=== PATIENT | female | born 1945 | race Caucasian/White ===

== ENCOUNTER → 2022-05-03 | Outpatient (CLI) | payer MEDICARE, OTHER | LOC: M WHC 08:56 | PROVIDERS: ATTEND Family Medicine | DX: Z12.31 Encounter for screening mammogram for malignant neoplasm of breast (principal); M81.0 Age-related osteoporosis without current pathological fracture; M85.88 Other specified disorders of bone density and structure, other site ==

== ENCOUNTER → 2023-03-29 | Outpatient (CLI) | payer MEDICARE, OTHER ==
[~2023-03-29] MED LIST: LIQUID POLIBAR PLUS 105% w/v 750ML BTL As Ordered ONE
== END ==
LOC: M RAD 07:42
PROVIDERS: ATTEND Surgery
DX: K57.90 Diverticulosis of intestine, part unspecified, without perforation or abscess without bleeding (principal)

== ENCOUNTER → 2023-04-15 | Outpatient (CLI) | payer MEDICARE, OTHER ==
[~2023-04-15] MED LIST changes: +E-Z-GAS II EFFERVESCENT PACKET (SODIUM BICARB./CITRIC ACID/SIMETHICONE) As Ordered ONE; +E-Z-HD 98% w/w 340GM SUSP BTL As Ordered ONE; +E-Z-PAQUE 96% w/w SUSP 176GM BTL As Ordered ONE; -LIQUID POLIBAR PLUS 105% w/v 750ML BTL As Ordered ONE
== END ==
LOC: M RAD 07:33
PROVIDERS: ATTEND Surgery
DX: R10.13 Epigastric pain (principal)

== ENCOUNTER 2024-05-26 12:02 | Day surgery (SDC) | payer MEDICARE, OTHER ==
[~2024-05-26] VITALS: Ht 160 cm; Wt 38.9 kg
[~2024-05-26 12:02] MED LIST changes: -E-Z-GAS II EFFERVESCENT PACKET (SODIUM BICARB./CITRIC ACID/SIMETHICONE) As Ordered ONE; -E-Z-HD 98% w/w 340GM SUSP BTL As Ordered ONE; -E-Z-PAQUE 96% w/w SUSP 176GM BTL As Ordered ONE; +ERGO500029 PO; +INCR1INH; +OMEP40CA5 PO; +SYMB16INH INH
[2024-05-26] MEDS: NS 1,000 ML IV ONE (12:54)
[2024-05-26 14:16] VITALS: TEMP 97.4
[2024-05-26 14:35] VITALS: BP 159/74; O2SAT 94
== END 2024-05-26 14:39 | disposition home or self-care (01) ==
LOC: M OPP 12:02
PROVIDERS: ATTEND Internal Medicine Gastroenterology
DX: R10.13 Epigastric pain (principal); Z86.74 Personal history of sudden cardiac arrest; J43.9 Emphysema, unspecified; Z79.51 Long term (current) use of inhaled steroids; Z79.899 Other long term (current) drug therapy; Z88.1 Allergy status to other antibiotic agents; Z88.5 Allergy status to narcotic agent; Z88.8 Allergy status to other drugs, medicaments and biological substances

== ENCOUNTER → 2024-06-26 | Outpatient (CLI) | payer MEDICARE, OTHER | LOC: M RAD 08:03 | PROVIDERS: ATTEND Nurse Practitioner Family | DX: K31.84 Gastroparesis (principal) | CPT/HCPCS: 78264; A9541 ==

== ENCOUNTER → 2025-04-19 | Outpatient (CLI) | payer MEDICARE, OTHER ==
[~2025-04-19] MED LIST changes: +E-Z-GAS II EFFERVESCENT PACKET (SODIUM BICARB./CITRIC ACID/SIMETHICONE) As Ordered ONE; +E-Z-HD 98% w/w 340 GM SUSP BTL As Ordered ONE; +E-Z-PAQUE 96% w/w SUSP 176 GM BTL As Ordered ONE; +ECOT81TA5 PO
== END ==
LOC: M RAD 08:40
PROVIDERS: ATTEND Radiology Diagnostic Radiology
DX: K55.1 Chronic vascular disorders of intestine (principal)

== ENCOUNTER → 2025-04-21 | Outpatient (POV) | payer MEDICARE, OTHER ==
[~2025-04-21] VITALS: Ht 165.1 cm; Wt 36.4 kg
[~2025-04-21] MED LIST changes: -E-Z-GAS II EFFERVESCENT PACKET (SODIUM BICARB./CITRIC ACID/SIMETHICONE) As Ordered ONE; -E-Z-HD 98% w/w 340 GM SUSP BTL As Ordered ONE; -E-Z-PAQUE 96% w/w SUSP 176 GM BTL As Ordered ONE
[2025-04-21 09:45] VITALS: BP 142/82; O2SAT 94
== END ==
LOC: M IRPOV 09:25
PROVIDERS: ATTEND Radiology Diagnostic Radiology
DX: R10.9 Unspecified abdominal pain (principal); R68.81 Early satiety; J43.9 Emphysema, unspecified; I25.2 Old myocardial infarction; F41.9 Anxiety disorder, unspecified; Z88.5 Allergy status to narcotic agent; Z88.8 Allergy status to other drugs, medicaments and biological substances

== ENCOUNTER → 2025-05-12 | Outpatient (POV) | payer MEDICARE, OTHER ==
[~2025-05-12] VITALS: Ht 162.6 cm; Wt 34.1 kg
[2025-05-12 13:45] VITALS: BP 170/92; O2SAT 95
== END ==
LOC: M IRPOV 13:34
PROVIDERS: ATTEND Radiology Diagnostic Radiology
DX: J43.9 Emphysema, unspecified (principal); I25.2 Old myocardial infarction; F41.9 Anxiety disorder, unspecified; R68.81 Early satiety; Z88.5 Allergy status to narcotic agent; Z88.8 Allergy status to other drugs, medicaments and biological substances

== ENCOUNTER 2025-08-04 13:48 | Observation (INO) | payer MEDICARE, OTHER ==
[~2025-08-04] VITALS: Ht 167.6 cm; Wt 36.1 kg
[~2025-08-04 13:48] MED LIST changes: -INCR1INH; +INCR1INH INH
[2025-08-04 16:28] VITALS: BP 148/72; TEMP 98.2; O2SAT 94
[2025-08-04] MEDS ORDERED: HOME MED LIST COMPLETE! XX SCH (17:10)
[2025-08-04] MEDS ORDERED: ALBUTEROL SULFATE 2.5 MG/0.5 ML INH CONCENTRATE NEB SOLN NEB PRN (17:15)
[2025-08-04] MEDS ORDERED: ACETAMINOPHEN 325 MG TAB PO PRN (17:20)
[2025-08-04 18:08] LABS: PLATELET COUNT, AUTOMATED 201 10^3/uL (150-450)
[2025-08-04 18:29] LABS: CALCIUM LEVEL 10.0 MG/DL (8.3-10.6); CARBON DIOXIDE LEVEL 29.0 MMOL/L (20-31); CHLORIDE LEVEL 102.0 MMOL/L (98-107); CREATININE FOR GFR 0.75 MG/DL (0.55-1.30); GLOMERULAR FILTRATION RATE 80.9 (>39); POTASSIUM SERUM 4.6 MMOL/L (3.5-5.1); SODIUM LEVEL 140.0 MMOL/L (136-145)
[2025-08-04] MEDS: SYMBICORT 160/4.5MCG INHALER 6GM INH SCH (19:24)
[2025-08-04 19:28] VITALS: BP 100/55; TEMP 98.7; O2SAT 92
[2025-08-04] MEDS: LR 1,000 ML IV SCH (23:04)
[2025-08-05] VITALS (7 sets, daily range): BP systolic 130–166; BP diastolic 62–90; TEMP 98.1–99.9; O2SAT 93–96
[2025-08-05 06:47] LABS: PLATELET COUNT, AUTOMATED 161 10^3/uL (150-450)
[2025-08-05 07:11] LABS: CALCIUM LEVEL 9.9 MG/DL (8.3-10.6); CARBON DIOXIDE LEVEL 31.0 MMOL/L (20-31); CHLORIDE LEVEL 105.0 MMOL/L (98-107); CREATININE FOR GFR 0.7 MG/DL (0.55-1.30); GLOMERULAR FILTRATION RATE 87.9 (>39); INR 0.93; POTASSIUM SERUM 4.2 MMOL/L (3.5-5.1); SODIUM LEVEL 143.0 MMOL/L (136-145)
[2025-08-05] MEDS: ISOVUE-300 61% 100 ML VIAL IV SCH (11:30)
[2025-08-05] MEDS: LIDOCAINE 2% JELLY 6 ML SYRINGE TOP SCH (11:31)
[2025-08-05] MEDS: MIDAZOLAM INJ 2 MG/2 ML VIAL IV PRN (11:32)
[2025-08-05] MEDS: NS (Normal Saline) 0.9% 1,000 ML IV SCH (11:34)
[2025-08-05] MEDS: SODIUM CHLORIDE 0.9% 1000 ML XX SCH (11:34)
[2025-08-05 16:26] LABS: MAGNESIUM LEVEL 1.6 MG/DL (1.8-2.4); PHOSPHORUS LEVEL 3.3 MG/DL (2.4-5.1)
[2025-08-05] MEDS: MAG SULF 1GM/100ML (MAG RUN) 1 GM in IV 1 EA IV SCH (17:40)
[2025-08-06 04:40] VITALS: BP 126/65; TEMP 98.8; O2SAT 94
[2025-08-06 07:06] LABS: CALCIUM LEVEL 9.4 MG/DL (8.3-10.6); CARBON DIOXIDE LEVEL 29.0 MMOL/L (20-31); CHLORIDE LEVEL 106.0 MMOL/L (98-107); CREATININE FOR GFR 0.67 MG/DL (0.55-1.30); GLOMERULAR FILTRATION RATE 88.9 (>39); POTASSIUM SERUM 4.2 MMOL/L (3.5-5.1); SODIUM LEVEL 143.0 MMOL/L (136-145)
[2025-08-06 09:06] LABS: MAGNESIUM LEVEL 1.9 MG/DL (1.8-2.4)
[2025-08-06 12:00] VITALS: BP 160/90; TEMP 98.4; O2SAT 93
[2025-08-06 15:20] LABS: PHOSPHORUS LEVEL 3.2 MG/DL (2.4-5.1)
[2025-08-06 16:22] VITALS: BP 160/90; TEMP 98.4; O2SAT 93
[2025-08-06 19:37] VITALS: BP 133/62; TEMP 98.8; O2SAT 95
[2025-08-06 23:44] VITALS: BP 126/56; TEMP 98.4; O2SAT 94
[2025-08-07 03:56] VITALS: BP 132/61; TEMP 98.1; O2SAT 92
[2025-08-07 06:56] LABS: CALCIUM LEVEL 9.4 MG/DL (8.3-10.6); CARBON DIOXIDE LEVEL 30.0 MMOL/L (20-31); CHLORIDE LEVEL 105.0 MMOL/L (98-107); CREATININE FOR GFR 0.69 MG/DL (0.55-1.30); GLOMERULAR FILTRATION RATE 88.2 (>39); MAGNESIUM LEVEL 1.7 MG/DL (1.8-2.4); PHOSPHORUS LEVEL 3.3 MG/DL (2.4-5.1); POTASSIUM SERUM 4.1 MMOL/L (3.5-5.1); SODIUM LEVEL 143.0 MMOL/L (136-145)
[2025-08-07] MEDS: MAG SULF 1GM/100ML (MAG RUN) 1 GM in IV 1 EA IV SCH (09:25)
[2025-08-07 12:10] VITALS: BP 135/84; TEMP 100.4; O2SAT 96
[2025-08-07 19:37] VITALS: BP 134/63; TEMP 98.5; O2SAT 93
[2025-08-08 04:09] VITALS: BP 129/63; TEMP 98.9; O2SAT 93
[2025-08-08 06:34] LABS: CALCIUM LEVEL 8.9 MG/DL (8.3-10.6); CARBON DIOXIDE LEVEL 29 MMOL/L (20-31); CHLORIDE LEVEL 105 MMOL/L (98-107); CREATININE FOR GFR 0.61 MG/DL (0.55-1.30); GLOMERULAR FILTRATION RATE > 90.0 (>39); MAGNESIUM LEVEL 1.8 MG/DL (1.8-2.4); PHOSPHORUS LEVEL 3.5 MG/DL (2.4-5.1); POTASSIUM SERUM 4.1 MMOL/L (3.5-5.1); SODIUM LEVEL 141 MMOL/L (136-145)
[2025-08-08] MEDS: MAG SULF 1GM/100ML (MAG RUN) 1 GM in IV 1 EA IV ONE (07:50)
[2025-08-08 12:00] VITALS: BP 121/74; TEMP 98.7; O2SAT 92
[2025-08-08 22:04] VITALS: BP 137/66; TEMP 98.1; O2SAT 92
[2025-08-09 04:12] VITALS: BP 143/67; TEMP 98.1; O2SAT 93
[2025-08-09 07:11] LABS: CALCIUM LEVEL 9.4 MG/DL (8.3-10.6); CARBON DIOXIDE LEVEL 31 MMOL/L (20-31); CHLORIDE LEVEL 104 MMOL/L (98-107); CREATININE FOR GFR 0.63 MG/DL (0.55-1.30); GLOMERULAR FILTRATION RATE > 90.0 (>39); MAGNESIUM LEVEL 1.8 MG/DL (1.8-2.4); PHOSPHORUS LEVEL 3.5 MG/DL (2.4-5.1); POTASSIUM SERUM 4.4 MMOL/L (3.5-5.1); SODIUM LEVEL 142 MMOL/L (136-145)
[2025-08-09] MEDS: MAG SULF 1GM/100ML (MAG RUN) 1 GM in IV 1 EA IV ONE (08:43)
[2025-08-09 11:57] VITALS: BP 148/67; TEMP 98.3; O2SAT 94
[2025-08-09 20:00] VITALS: BP 120/57; TEMP 99.8; O2SAT 95
[2025-08-09] MEDS ORDERED: ALPRAZolam 0.25 MG TAB PO PRN (20:00)
[2025-08-10 04:00] VITALS: BP 135/65; TEMP 98.5; O2SAT 92
[2025-08-10 06:22] LABS: PLATELET COUNT, AUTOMATED 171 10^3/uL (150-450)
[2025-08-10] MEDS: READI-CAT 2 NG STA (06:40)
[2025-08-10 06:50] LABS: CALCIUM LEVEL 9.5 MG/DL (8.3-10.6); CARBON DIOXIDE LEVEL 30 MMOL/L (20-31); CHLORIDE LEVEL 103 MMOL/L (98-107); CREATININE FOR GFR 0.58 MG/DL (0.55-1.30); GLOMERULAR FILTRATION RATE > 90.0 (>39); PHOSPHORUS LEVEL 3.9 MG/DL (2.4-5.1); POTASSIUM SERUM 4.4 MMOL/L (3.5-5.1); SODIUM LEVEL 141 MMOL/L (136-145)
[2025-08-10 08:05] LABS: CHOLESTEROL LEVEL 141 MG/DL (<200); CHOLESTEROL RISK RATIO 2.34 (<5); LDL CHOLESTEROL 68.8 MG/DL (<100); MAGNESIUM LEVEL 1.7 MG/DL (1.8-2.4); NON-HDL-C 80.8 MG/DL; TRIGLYCERIDES LEVEL 60 MG/DL (<150)
[2025-08-10] MEDS: HEPARIN SOD 5000 UNITS/ML 1 ML VIAL/SYRINGE SQ SCH (11:16)
[2025-08-10 11:50] VITALS: BP 134/63; TEMP 96.2; O2SAT 93
[2025-08-10 20:00] VITALS: BP 131/61; TEMP 97.8; O2SAT 93
[2025-08-10] MEDS: MAG SULF 1GM/100ML (MAG RUN) 1 GM in IV 1 EA IV ONE (20:07)
[2025-08-11 04:00] VITALS: BP 130/64; TEMP 98.6; O2SAT 92
[2025-08-11 12:00] VITALS: BP 129/63; TEMP 99.2; O2SAT 94
[2025-08-11 19:27] VITALS: BP 118/70; TEMP 96.1; O2SAT 92
[2025-08-12 04:22] VITALS: BP 129/58; TEMP 98.6; O2SAT 95
[2025-08-12 08:49] LABS: CALCIUM LEVEL 10.0 MG/DL (8.3-10.6); CARBON DIOXIDE LEVEL 30 MMOL/L (20-31); CHLORIDE LEVEL 104 MMOL/L (98-107); CREATININE FOR GFR 0.61 MG/DL (0.55-1.30); GLOMERULAR FILTRATION RATE > 90.0 (>39); PHOSPHORUS LEVEL 3.3 MG/DL (2.4-5.1); POTASSIUM SERUM 4.2 MMOL/L (3.5-5.1); SODIUM LEVEL 143 MMOL/L (136-145)
[2025-08-12 12:00] VITALS: BP 141/63; TEMP 97.9; O2SAT 95
[2025-08-20] MEDS ORDERED: ONDA-282 PO (15:35)
== END 2025-08-12 17:54 | disposition home health service (06) ==
LOC: M MSPAV 16:15
PROVIDERS: ADMIT Student in an Organized Health Care Education/Training Program; ATTEND General Practice
DX: R62.7 Adult failure to thrive (principal); E43 Unspecified severe protein-calorie malnutrition; K55.1 Chronic vascular disorders of intestine; E87.8 Other disorders of electrolyte and fluid balance, not elsewhere classified; E83.42 Hypomagnesemia; J44.9 Chronic obstructive pulmonary disease, unspecified; I25.10 Atherosclerotic heart disease of native coronary artery without angina pectoris; K31.84 Gastroparesis; Z79.899 Other long term (current) drug therapy; Z88.5 Allergy status to narcotic agent; Z88.8 Allergy status to other drugs, medicaments and biological substances
CPT/HCPCS: 36415; 43752; 80048; 80061; 83735; 84100; 84134; 85027; 85610; 93005; 94640; 96360; 96361; 99152; 99153; C1729; C1769; G0378; J2250; J3010; J3475; Q9967

== ENCOUNTER → 2025-08-16 | Outpatient (CLI) | payer MEDICARE, OTHER ==
[~2025-08-16] VITALS: Ht 162.6 cm; Wt 35.8 kg
== END ==
LOC: M IRPRO 10:47
PROVIDERS: ATTEND Radiology Diagnostic Radiology
DX: R62.7 Adult failure to thrive (principal); Z53.9 Procedure and treatment not carried out, unspecified reason

== ENCOUNTER → 2025-08-16 | Outpatient (CLI) | payer MEDICARE, OTHER ==
[~2025-08-16] VITALS: Ht 162.6 cm; Wt 35.8 kg
[~2025-08-16] MED LIST changes: +ACETAMINOPHEN 1000MG/100ML IV BAG As Ordered ONE; +GLUCAGON INJ 1 MG VIAL IV SCH; +ISOVUE-300 61% 100 ML VIAL IV SCH; +LIDOCAINE 1% MDV 20 ML VIAL SC SCH; +LIDOCAINE 2% 100 MG/5 ML SDV (FOR ANES.) As Ordered ONE; +LIDOCAINE 2% JELLY 6 ML SYRINGE TOP SCH; +MORPHINE 2 MG/ML 1 ML VIAL IV PRN; +ONDANSETRON 4MG/2ML VIAL As Ordered ONE; +SODIUM CHLORIDE 0.9% 1000 ML XX SCH; +ceFAZolin SODIUM 2 GM in DEXTROSE 5% (D5W) ADV/MINI-BAG 50 ML IV ONE; +dexAMETHasone 4 MG/ML 1 ML VIAL As Ordered ONE
[2025-08-16 10:50] VITALS: TEMP 98.6
[2025-08-16] MEDS: LIDOCAINE 1% MDV 20 ML VIAL SC SCH (15:17)
[2025-08-16] MEDS: GLUCAGON INJ 1 MG VIAL IV SCH (15:17)
[2025-08-16] MEDS: ISOVUE-300 61% 100 ML VIAL IV SCH (15:18)
[2025-08-16] MEDS: KETOROLAC 30 MG/ML 1 ML VIAL IV ONE (16:17)
[2025-08-16] MEDS: ACETAMINOPHEN *IV* 1,000 MG in IV 1 EA IV ONE (17:03)
[2025-08-16] MEDS: ONDANSETRON 4MG ORAL DISINTEGRATING TAB PO ONE (17:53)
[2025-08-16 18:05] VITALS: BP 131/61; O2SAT 90
== END ==
LOC: M IRPRO 15:01
PROVIDERS: ATTEND General Practice
DX: R62.7 Adult failure to thrive (principal)
CPT/HCPCS: 49441; J0131; J1100; J1610; J1885; J2405; J3010; Q9967

== ENCOUNTER → 2025-08-20 | Outpatient (REF) | payer MEDICARE, OTHER ==
[~2025-08-20] MED LIST changes: -ACETAMINOPHEN 1000MG/100ML IV BAG As Ordered ONE; -GLUCAGON INJ 1 MG VIAL IV SCH; -ISOVUE-300 61% 100 ML VIAL IV SCH; -LIDOCAINE 1% MDV 20 ML VIAL SC SCH; -LIDOCAINE 2% 100 MG/5 ML SDV (FOR ANES.) As Ordered ONE; -LIDOCAINE 2% JELLY 6 ML SYRINGE TOP SCH; -MORPHINE 2 MG/ML 1 ML VIAL IV PRN; +ONDA-282 PO; -ONDANSETRON 4MG/2ML VIAL As Ordered ONE; -SODIUM CHLORIDE 0.9% 1000 ML XX SCH; -ceFAZolin SODIUM 2 GM in DEXTROSE 5% (D5W) ADV/MINI-BAG 50 ML IV ONE; -dexAMETHasone 4 MG/ML 1 ML VIAL As Ordered ONE
[2025-08-20 17:49] LABS: PLATELET COUNT, AUTOMATED 227 10^3/uL (150-450)
[2025-08-20 18:08] LABS: CALCIUM LEVEL 10.2 MG/DL (8.3-10.6); CARBON DIOXIDE LEVEL 34 MMOL/L (20-31); CHLORIDE LEVEL 95 MMOL/L (98-107); CREATININE FOR GFR 0.49 MG/DL (0.55-1.30); GLOMERULAR FILTRATION RATE > 90.0 (>39); MAGNESIUM LEVEL 1.6 MG/DL (1.8-2.4); PHOSPHORUS LEVEL 2.5 MG/DL (2.4-5.1); POTASSIUM SERUM 3.5 MMOL/L (3.5-5.1); SODIUM LEVEL 137 MMOL/L (136-145)
== END ==
LOC: M LAB REF 17:09
PROVIDERS: ATTEND General Practice
DX: R62.7 Adult failure to thrive (principal); Z88.5 Allergy status to narcotic agent; Z88.8 Allergy status to other drugs, medicaments and biological substances

== ENCOUNTER 2025-08-23 11:33 | Inpatient (IN) | payer MEDICARE, OTHER ==
[~2025-08-23] VITALS: Ht 162.6 cm; Wt 36.5 kg
[2025-08-23] VITALS (7 sets, daily range): BP systolic 118–153; BP diastolic 58–77; TEMP 97.9–100.2; O2SAT 85–98
[2025-08-23 12:20] LABS: BASO # 0.0 10^3/uL (0.0-0.2); BASO % 0.3 % (0.0-1.0); EOS # 0.1 10^3/uL (0.0-0.5); EOS % 0.4 % (0.0-3.0); LYMPH # 0.6 10^3/uL (1.5-5.0); LYMPH % 5.1 % (24.0-44.0); MONO # 1.1 10^3/uL (0.0-0.8); MONO % 8.6 % (2.0-8.0); NEUTROPHILS # 10.8 10^3/uL (1.5-8.5); NEUTROPHILS % 85.3 % (36.0-66.0); PLATELET COUNT, AUTOMATED 279 10^3/uL (150-450)
[2025-08-23] MEDS ORDERED: ISOVUE-370 76% 100 ML VIAL As Ordered ONE (12:32)
[2025-08-23 12:46] LABS: ALT/SGPT 16 U/L (7.0-40); AST/SGOT 24 U/L (<34); CALCIUM LEVEL 10.1 MG/DL (8.3-10.6); CARBON DIOXIDE LEVEL 33 MMOL/L (20-31); CHLORIDE LEVEL 93 MMOL/L (98-107); CREATININE FOR GFR 0.57 MG/DL (0.55-1.30); GLOMERULAR FILTRATION RATE > 90.0 (>39); POTASSIUM SERUM 4.4 MMOL/L (3.5-5.1); SODIUM LEVEL 136 MMOL/L (136-145)
[2025-08-23] MEDS ORDERED: HOME MED LIST COMPLETE! XX SCH (13:25)
[2025-08-23] MEDS ORDERED: IPRATROPIUM 0.5 MG/ALBUTEROL 2.5 MG INH SOL UD 3 ML NEB PRN (16:00)
[2025-08-23 17:54] LABS: C REACTIVE PROTEIN QUANTITATIV 6.06 MG/DL (<1.0)
[2025-08-23 17:56] LABS: TOTAL 25(OH) VITAMIN D 58.0 NG/ML (20.0-100.0)
[2025-08-23 17:57] LABS: VITAMIN B12 LEVEL 829.0 PG/ML (211-911)
[2025-08-23] MEDS: SYMBICORT 160/4.5MCG INHALER 6GM INH SCH (19:22)
[2025-08-23] MEDS: IPRATROPIUM 0.5 MG/ALBUTEROL 2.5 MG INH SOL UD 3 ML NEB SCH (19:22)
[2025-08-23] MEDS: ONDANSETRON 4MG/2ML VIAL IV PRN (23:58)
[2025-08-24] MEDS: ACETAMINOPHEN *IV* 500 MG in IV 1 EA IV ONE (00:50)
[2025-08-24 02:21] VITALS: TEMP 99.3; O2SAT 97
[2025-08-24 03:57] VITALS: BP 112/58; TEMP 99.2; O2SAT 99
[2025-08-24 06:35] LABS: PLATELET COUNT, AUTOMATED 255 10^3/uL (150-450)
[2025-08-24 07:00] LABS: CALCIUM LEVEL 9.8 MG/DL (8.3-10.6); CARBON DIOXIDE LEVEL 34.0 MMOL/L (20-31); CHLORIDE LEVEL 92.0 MMOL/L (98-107); CREATININE FOR GFR 0.66 MG/DL (0.55-1.30); GLOMERULAR FILTRATION RATE 89.2 (>39); MAGNESIUM LEVEL 1.8 MG/DL (1.8-2.4); POTASSIUM SERUM 4.5 MMOL/L (3.5-5.1); SODIUM LEVEL 133.0 MMOL/L (136-145)
[2025-08-24 08:31] VITALS: BP 100/54; TEMP 98.4; O2SAT 97
[2025-08-24] MEDS: ENOXAPARIN 30 MG/0.3 ML SYRINGE (J1650 PER 10MG) SC SCH (09:46)
[2025-08-24 12:00] VITALS: BP 97/52; TEMP 98.4; O2SAT 95
[2025-08-24 17:15] VITALS: BP 112/70; TEMP 100.4; O2SAT 96
[2025-08-24] MEDS: ACETAMINOPHEN 500 MG TAB PO PRN (17:38)
[2025-08-24 20:00] VITALS: BP 123/73; TEMP 99.7; O2SAT 96
[2025-08-25] VITALS (14 sets, daily range): BP systolic 91–119; BP diastolic 50–65; TEMP 98.6–100.4; O2SAT 86–98
[2025-08-25 06:26] LABS: PLATELET COUNT, AUTOMATED 322 10^3/uL (150-450)
[2025-08-25 06:58] LABS: CALCIUM LEVEL 9.6 MG/DL (8.3-10.6); CARBON DIOXIDE LEVEL 33 MMOL/L (20-31); CHLORIDE LEVEL 96 MMOL/L (98-107); CREATININE FOR GFR 0.56 MG/DL (0.55-1.30); GLOMERULAR FILTRATION RATE > 90.0 (>39); MAGNESIUM LEVEL 1.9 MG/DL (1.8-2.4); POTASSIUM SERUM 4.6 MMOL/L (3.5-5.1); SODIUM LEVEL 136 MMOL/L (136-145)
[2025-08-26] VITALS (11 sets, daily range): BP systolic 96–138; BP diastolic 49–61; TEMP 97–101.9; O2SAT 91–97
[2025-08-26 06:41] LABS: PLATELET COUNT, AUTOMATED 324 10^3/uL (150-450)
[2025-08-26 07:16] LABS: CALCIUM LEVEL 9.6 MG/DL (8.3-10.6); CARBON DIOXIDE LEVEL 35 MMOL/L (20-31); CHLORIDE LEVEL 94 MMOL/L (98-107); CREATININE FOR GFR 0.58 MG/DL (0.55-1.30); GLOMERULAR FILTRATION RATE > 90.0 (>39); MAGNESIUM LEVEL 1.8 MG/DL (1.8-2.4); POTASSIUM SERUM 4.5 MMOL/L (3.5-5.1); SODIUM LEVEL 137 MMOL/L (136-145)
[2025-08-26] MEDS ORDERED: INCRUSE ELLIPTA INHALER (PATIENT'S OWN MED) INH SCH (08:00)
[2025-08-26] MEDS ORDERED: FLEET ENEMA PR PRN (10:25)
[2025-08-26] MEDS ORDERED: RAMELTEON 8 MG TAB PO PRN (10:30)
[2025-08-27 03:19] VITALS: BP 119/60; TEMP 97.3; O2SAT 95
[2025-08-27 06:48] LABS: PLATELET COUNT, AUTOMATED 315 10^3/uL (150-450)
[2025-08-27 07:20] LABS: CALCIUM LEVEL 9.7 MG/DL (8.3-10.6); CARBON DIOXIDE LEVEL 32 MMOL/L (20-31); CHLORIDE LEVEL 96 MMOL/L (98-107); CREATININE FOR GFR 0.57 MG/DL (0.55-1.30); GLOMERULAR FILTRATION RATE > 90.0 (>39); MAGNESIUM LEVEL 1.9 MG/DL (1.8-2.4); POTASSIUM SERUM 4.9 MMOL/L (3.5-5.1); SODIUM LEVEL 135 MMOL/L (136-145)
[2025-08-27 07:33] VITALS: BP 99/55; TEMP 96.1; O2SAT 55; O2SAT 95
[2025-08-27] MEDS: INCRUSE ELLIPTA INHALER (PATIENT'S OWN MED) INH SCH (08:00)
[2025-08-27] MEDS: BISACODYL 10 MG SUPP PR PRN (10:07)
[2025-08-27 11:25] VITALS: BP 100/54; TEMP 96.3; O2SAT 95
[2025-08-27 15:52] VITALS: BP 109/63; TEMP 99.5; O2SAT 89
[2025-08-27 18:51] LABS: KETONE, URINE AUTO RFX NEGATIVE (NEGATIVE); LEUKOCYTE ESTERASE UR AUTO RFX NEGATIVE (NEGATIVE); NITRITE, URINE AUTO RFX NEGATIVE (NEGATIVE); RBC, URINE AUTO RFX 1 /HPF (0-3); SQUAM EPITHELIAL CELL UR AURFX 1 /HPF (0-6); TRANSITIONAL EPITHELIAL AU RFX 1 /HPF; WBC, URINE AUTO RFX 2 /HPF (0-3)
[2025-08-27 20:17] VITALS: BP 109/50; TEMP 99; O2SAT 90
[2025-08-28] VITALS (7 sets, daily range): BP systolic 97–132; BP diastolic 48–64; TEMP 97.3–98.8; O2SAT 92–98
[2025-08-28 06:23] LABS: PLATELET COUNT, AUTOMATED 365 10^3/uL (150-450)
[2025-08-28 06:49] LABS: CALCIUM LEVEL 9.6 MG/DL (8.3-10.6); CARBON DIOXIDE LEVEL 33 MMOL/L (20-31); CHLORIDE LEVEL 97 MMOL/L (98-107); CREATININE FOR GFR 0.53 MG/DL (0.55-1.30); GLOMERULAR FILTRATION RATE > 90.0 (>39); MAGNESIUM LEVEL 1.9 MG/DL (1.8-2.4); POTASSIUM SERUM 4.7 MMOL/L (3.5-5.1); SODIUM LEVEL 139 MMOL/L (136-145)
[2025-08-28 07:13] LABS: HIV 1&2 SCREEN NEGATIVE (NEGATIVE)
[2025-08-28] MEDS ORDERED: TIOTROPIUM BROM 2.5MCG/ACTUATION 4GM INH INH SCH (08:00)
[2025-08-29 03:54] VITALS: BP 106/54; TEMP 98.3; O2SAT 95
[2025-08-29 06:50] LABS: PLATELET COUNT, AUTOMATED 342 10^3/uL (150-450)
[2025-08-29 07:20] LABS: CALCIUM LEVEL 10.2 MG/DL (8.3-10.6); CARBON DIOXIDE LEVEL 33 MMOL/L (20-31); CHLORIDE LEVEL 98 MMOL/L (98-107); CREATININE FOR GFR 0.59 MG/DL (0.55-1.30); GLOMERULAR FILTRATION RATE > 90.0 (>39); MAGNESIUM LEVEL 2.0 MG/DL (1.8-2.4); POTASSIUM SERUM 4.4 MMOL/L (3.5-5.1); SODIUM LEVEL 139 MMOL/L (136-145)
[2025-08-29 08:00] VITALS: BP 103/58; TEMP 98.6; O2SAT 94
[2025-08-29 12:00] VITALS: BP 116/56; TEMP 99.1; O2SAT 95
[2025-08-29] MEDS: D5W/0.9% SODIUM CHLORIDE 1,000 ML IV SCH (12:55)
[2025-08-29] MEDS: BISACODYL 10 MG SUPP PR SCH (14:35)
[2025-08-29 16:00] VITALS: BP 107/53; TEMP 98.6; O2SAT 95
[2025-08-29 20:26] VITALS: BP 125/59; TEMP 98; O2SAT 93
[2025-08-29 23:52] VITALS: BP 107/52; TEMP 98.4; O2SAT 93
[2025-08-30 03:22] VITALS: BP 102/53; TEMP 98.8; O2SAT 96
[2025-08-30 07:53] LABS: PLATELET COUNT, AUTOMATED 350 10^3/uL (150-450)
[2025-08-30 08:23] LABS: CALCIUM LEVEL 9.3 MG/DL (8.3-10.6); CARBON DIOXIDE LEVEL 31 MMOL/L (20-31); CHLORIDE LEVEL 104 MMOL/L (98-107); CREATININE FOR GFR 0.59 MG/DL (0.55-1.30); GLOMERULAR FILTRATION RATE > 90.0 (>39); MAGNESIUM LEVEL 1.7 MG/DL (1.8-2.4); POTASSIUM SERUM 4.6 MMOL/L (3.5-5.1); SODIUM LEVEL 143 MMOL/L (136-145)
[2025-08-30 08:25] VITALS: BP 100/51; TEMP 98.3; O2SAT 95
[2025-08-30] MEDS: LIDOCAINE 2% JELLY 6 ML SYRINGE TOP SCH (10:50)
[2025-08-30] MEDS: NS (Normal Saline) 0.9% 1,000 ML IV SCH (10:50)
[2025-08-30] MEDS: GLUCAGON INJ 1 MG VIAL IV SCH (10:50)
[2025-08-30] MEDS: ceFAZolin SODIUM 2 GM in DEXTROSE 5% (D5W) ADV/MINI-BAG 50 ML IV ONE (10:50)
[2025-08-30] MEDS: SODIUM CHLORIDE 0.9% 1000 ML XX SCH (12:00)
[2025-08-30] MEDS: LIDOCAINE 1% MDV 20 ML VIAL SC SCH (12:00)
[2025-08-30] MEDS: MIDAZOLAM INJ 2 MG/2 ML VIAL IV PRN (12:06)
[2025-08-30] MEDS: ISOVUE-300 61% 100 ML VIAL IV SCH (12:18)
[2025-08-30 12:45] VITALS: BP 113/63; TEMP 98.4; O2SAT 94
[2025-08-30 16:44] VITALS: BP 103/51; TEMP 99.2; O2SAT 95
[2025-08-30 20:46] VITALS: BP 103/47; TEMP 98.3; O2SAT 93
[2025-08-31 00:23] VITALS: BP 102/54; TEMP 98.3; O2SAT 94
[2025-08-31 03:56] VITALS: BP 117/53; TEMP 98.6; O2SAT 94
[2025-08-31] MEDS: BISACODYL 10 MG SUPP PR PRN (07:54)
[2025-08-31 08:00] VITALS: BP 133/52; TEMP 98.9; O2SAT 95
[2025-08-31 09:00] LABS: PLATELET COUNT, AUTOMATED 346 10^3/uL (150-450)
[2025-08-31 09:28] LABS: CALCIUM LEVEL 9.0 MG/DL (8.3-10.6); CARBON DIOXIDE LEVEL 28 MMOL/L (20-31); CHLORIDE LEVEL 105 MMOL/L (98-107); CREATININE FOR GFR 0.52 MG/DL (0.55-1.30); GLOMERULAR FILTRATION RATE > 90.0 (>39); MAGNESIUM LEVEL 1.6 MG/DL (1.8-2.4); PHOSPHORUS LEVEL 3.0 MG/DL (2.4-5.1); POTASSIUM SERUM 4.9 MMOL/L (3.5-5.1); SODIUM LEVEL 142 MMOL/L (136-145)
[2025-08-31 11:32] LABS: BORRELIA SPECIES DNA NOT DETECTED
[2025-08-31] MEDS: MAG SULF 1GM/100ML (MAG RUN) 1 GM in IV 1 EA IV SCH (11:34)
[2025-08-31 11:50] VITALS: BP 120/55; TEMP 99.6; O2SAT 94
[2025-08-31 12:10] VITALS: TEMP 97.7
[2025-08-31 20:05] VITALS: BP 115/52; TEMP 98.7; O2SAT 90
[2025-08-31] MEDS: ONDANSETRON 4MG/2ML VIAL IV PRN (21:33)
[2025-09-01] VITALS (7 sets, daily range): BP systolic 105–145; BP diastolic 55–68; TEMP 98.1–99.3; O2SAT 90–98
[2025-09-01 07:10] LABS: BASO # 0.1 10^3/uL (0.0-0.2); BASO % 0.5 % (0.0-1.0); EOS # 0.1 10^3/uL (0.0-0.5); EOS % 0.6 % (0.0-3.0); LYMPH # 0.8 10^3/uL (1.5-5.0); LYMPH % 7.5 % (24.0-44.0); MONO # 0.5 10^3/uL (0.0-0.8); MONO % 5.1 % (2.0-8.0); NEUTROPHILS # 9.1 10^3/uL (1.5-8.5); NEUTROPHILS % 85.9 % (36.0-66.0); PLATELET COUNT, AUTOMATED 362 10^3/uL (150-450)
[2025-09-01 07:39] LABS: ALT/SGPT 36 U/L (7.0-40); AST/SGOT 34 U/L (<34); CALCIUM LEVEL 9.9 MG/DL (8.3-10.6); CARBON DIOXIDE LEVEL 30 MMOL/L (20-31); CHLORIDE LEVEL 100 MMOL/L (98-107); CREATININE FOR GFR 0.59 MG/DL (0.55-1.30); GLOMERULAR FILTRATION RATE > 90.0 (>39); MAGNESIUM LEVEL 1.9 MG/DL (1.8-2.4); PHOSPHORUS LEVEL 3.2 MG/DL (2.4-5.1); POTASSIUM SERUM 5.0 MMOL/L (3.5-5.1); SODIUM LEVEL 139 MMOL/L (136-145)
[2025-09-01] MEDS ORDERED: GI COCKTAIL 50 ML BTL(HYOSCYAMINE/MAALOX/LIDOCAINE VISCOUS)(1:3:1) PO ONE (13:15)
[2025-09-02 05:05] VITALS: BP 115/56; TEMP 97.6; O2SAT 90
[2025-09-02 08:00] VITALS: BP 105/51; TEMP 98.6; O2SAT 98
[2025-09-02 11:54] VITALS: BP 128/56; TEMP 98.1; O2SAT 97
[2025-09-02] MEDS ORDERED: SODIUM CHLORIDE 0.9% INJ 10 ML SYR IV PRN (16:40)
[2025-09-02 17:14] VITALS: BP 118/75; TEMP 97.6; O2SAT 92
[2025-09-02 20:00] VITALS: BP 130/60; TEMP 98.4; O2SAT 98
[2025-09-02 23:51] VITALS: BP 131/61; TEMP 98.3; O2SAT 91
[2025-09-03] VITALS (7 sets, daily range): BP systolic 109–159; BP diastolic 52–75; TEMP 97.9–99.7; O2SAT 88–94
[2025-09-03] MEDS: SODIUM CHLORIDE 0.9% INJ 10 ML SYR IV SCH (09:16)
[2025-09-03] MEDS ORDERED: LIDOCAINE 2% 100 MG/5 ML SDV (FOR ANES.) As Ordered ONE (14:23)
[2025-09-03] MEDS ORDERED: MIDAZOLAM INJ 2 MG/2 ML VIAL As Ordered ONE (14:24)
[2025-09-03] MEDS ORDERED: PHENYLephrine 500MCG 5ML (100MCG/ML) SYRINGE As Ordered ONE (15:18)
[2025-09-03] MEDS ORDERED: CALCIUM CHLORIDE 10% 1 GM/10 ML SYR As Ordered ONE (15:49)
[2025-09-03] MEDS: HEPARIN 1,000 UNITS/ML 10 ML VIAL (FOR RADIOLOGY & DIALYSIS ONLY) IV STA (15:55)
[2025-09-03] MEDS: LIDOCAINE/PRILOCAINE CREAM 5 GM TUBE TOP ONE (15:56)
[2025-09-03] MEDS: NITROGLYCERIN 2% OINT 1 GM *U/D* PKT TOP ONE (15:56)
[2025-09-03] MEDS: HEPARIN 1,000 UNITS/ML 10 ML VIAL (FOR RADIOLOGY & DIALYSIS ONLY) XX SCH (16:08)
[2025-09-03] MEDS: NITROGLYCERIN IN D5W 25 MG/250 ML (100 MCG/ML) XX SCH (16:24)
[2025-09-03] MEDS ORDERED: PROTAMINE SULF 50MG 5ML VIAL As Ordered ONE (16:41)
[2025-09-03] MEDS: LIDOCAINE 1% MDV 20 ML VIAL SC STA (16:49)
[2025-09-03] MEDS: ISOVUE-300 61% 100 ML VIAL IV STA (16:50)
[2025-09-03] MEDS: NS (Normal Saline) 0.9% 1,000 ML IV SCH (18:20)
[2025-09-03 18:22] LABS: PLATELET COUNT, AUTOMATED 342 10^3/uL (150-450)
[2025-09-03 18:54] LABS: CALCIUM LEVEL 10.4 MG/DL (8.3-10.6); CARBON DIOXIDE LEVEL 31 MMOL/L (20-31); CHLORIDE LEVEL 101 MMOL/L (98-107); CREATININE FOR GFR 0.50 MG/DL (0.55-1.30); GLOMERULAR FILTRATION RATE > 90.0 (>39); POTASSIUM SERUM 4.3 MMOL/L (3.5-5.1); SODIUM LEVEL 140 MMOL/L (136-145)
[2025-09-04 00:09] VITALS: BP 135/65; TEMP 97.9; O2SAT 89
[2025-09-04] MEDS: LIDOCAINE 5% PATCH TD ONE (02:55)
[2025-09-04 04:00] VITALS: BP 112/58; TEMP 98.2; O2SAT 93
[2025-09-04 08:00] VITALS: BP 130/83; TEMP 98.7; O2SAT 91
[2025-09-04] MEDS ORDERED: GI COCKTAIL 50 ML BTL(HYOSCYAMINE/MAALOX/LIDOCAINE VISCOUS)(1:3:1) PO ONE (10:35)
[2025-09-04] MEDS: traMADol 50 MG TAB PO PRN (10:47)
[2025-09-04 12:00] VITALS: BP 136/58; TEMP 99.3; O2SAT 90
[2025-09-04 13:49] LABS: MAGNESIUM LEVEL 1.3 MG/DL (1.8-2.4); PHOSPHORUS LEVEL 2.2 MG/DL (2.4-5.1)
[2025-09-04] MEDS: ATORVASTATIN 20 MG TAB PO SCH (14:43)
[2025-09-04] MEDS: ASPIRIN 81 MG ENTERIC TABLET PO SCH (14:43)
[2025-09-04 16:00] VITALS: BP 119/56; TEMP 98.8; O2SAT 86
[2025-09-04] MEDS ORDERED: GI COCKTAIL 50 ML BTL(HYOSCYAMINE/MAALOX/LIDOCAINE VISCOUS)(1:3:1) PO PRN (16:45)
[2025-09-05] VITALS (15 sets, daily range): BP systolic 103–161; BP diastolic 56–79; TEMP 97.7–99.4; O2SAT 87–98
[2025-09-05] MEDS: METOCLOPRAMIDE 10 MG TAB PO SCH (08:01)
[2025-09-05 08:24] LABS: BASO # 0.0 10^3/uL (0.0-0.2); BASO % 0.3 % (0.0-1.0); EOS # 0.0 10^3/uL (0.0-0.5); EOS % 0.1 % (0.0-3.0); LYMPH # 0.6 10^3/uL (1.5-5.0); LYMPH % 6.0 % (24.0-44.0); MONO # 0.7 10^3/uL (0.0-0.8); MONO % 6.8 % (2.0-8.0); NEUTROPHILS # 8.3 10^3/uL (1.5-8.5); NEUTROPHILS % 86.4 % (36.0-66.0); PLATELET COUNT, AUTOMATED 265 10^3/uL (150-450)
[2025-09-05 08:43] LABS: CALCIUM LEVEL 9.2 MG/DL (8.3-10.6); CARBON DIOXIDE LEVEL 32 MMOL/L (20-31); CHLORIDE LEVEL 102 MMOL/L (98-107); CREATININE FOR GFR 0.48 MG/DL (0.55-1.30); GLOMERULAR FILTRATION RATE > 90.0 (>39); MAGNESIUM LEVEL 1.8 MG/DL (1.8-2.4); PHOSPHORUS LEVEL 1.9 MG/DL (2.4-5.1); POTASSIUM SERUM 3.2 MMOL/L (3.5-5.1); SODIUM LEVEL 139 MMOL/L (136-145)
[2025-09-05 10:05] LABS: IRON (FE) 27 UG/DL (50-170); PERCENT SATURATION 11.6 % (13.2-45.0)
[2025-09-05 10:15] LABS: VITAMIN B12 LEVEL 916 PG/ML (211-911)
[2025-09-05] MEDS: FERRIC CARBOXYMALTOSE INJ 750 MG, VIAL MATE ADAPTER 1 EACH in NS 100 ML IV ONE (18:13)
[2025-09-05 20:42] LABS: BASO # 0.0 10^3/uL (0.0-0.2); BASO % 0.3 % (0.0-1.0); EOS # 0.0 10^3/uL (0.0-0.5); EOS % 0.2 % (0.0-3.0); LYMPH # 0.6 10^3/uL (1.5-5.0); LYMPH % 6.8 % (24.0-44.0); MONO # 0.7 10^3/uL (0.0-0.8); MONO % 7.2 % (2.0-8.0); NEUTROPHILS # 7.8 10^3/uL (1.5-8.5); NEUTROPHILS % 84.8 % (36.0-66.0); PLATELET COUNT, AUTOMATED 232 10^3/uL (150-450)
[2025-09-06 03:51] VITALS: BP 117/64; TEMP 97.7; O2SAT 89
[2025-09-06 07:04] LABS: PLATELET COUNT, AUTOMATED 240 10^3/uL (150-450)
[2025-09-06 07:30] LABS: ALT/SGPT 16 U/L (7.0-40); AST/SGOT 26 U/L (<34); CALCIUM LEVEL 9.0 MG/DL (8.3-10.6); CARBON DIOXIDE LEVEL 31 MMOL/L (20-31); CHLORIDE LEVEL 102 MMOL/L (98-107); CREATININE FOR GFR 0.45 MG/DL (0.55-1.30); GLOMERULAR FILTRATION RATE > 90.0 (>39); MAGNESIUM LEVEL 1.7 MG/DL (1.8-2.4); PHOSPHORUS LEVEL 2.7 MG/DL (2.4-5.1); POTASSIUM SERUM 3.7 MMOL/L (3.5-5.1); SODIUM LEVEL 139 MMOL/L (136-145)
[2025-09-06 08:11] VITALS: BP 139/69; TEMP 97.4; O2SAT 87
[2025-09-06] MEDS: MAG SULF 1GM/100ML (MAG RUN) 1 GM in IV 1 EA IV SCH (08:57)
[2025-09-06 12:02] VITALS: BP 130/66; TEMP 97.5; O2SAT 89
[2025-09-06 15:54] VITALS: BP 128/69; TEMP 98; O2SAT 89
[2025-09-06 21:42] VITALS: BP 183/74; TEMP 97.6; O2SAT 89
[2025-09-07] VITALS (8 sets, daily range): BP systolic 108–137; BP diastolic 58–73; TEMP 97.8–99; O2SAT 84–93
[2025-09-07 09:45] LABS: PLATELET COUNT, AUTOMATED 236 10^3/uL (150-450)
[2025-09-07] MEDS: METOPROLOL TART 12.5 MG PER 1/2 TAB PO SCH (09:51)
[2025-09-07 10:11] LABS: ALT/SGPT 23 U/L (7.0-40); AST/SGOT 31 U/L (<34); CALCIUM LEVEL 8.6 MG/DL (8.3-10.6); CARBON DIOXIDE LEVEL 30 MMOL/L (20-31); CHLORIDE LEVEL 98 MMOL/L (98-107); CREATININE FOR GFR 0.42 MG/DL (0.55-1.30); GLOMERULAR FILTRATION RATE > 90.0 (>39); MAGNESIUM LEVEL 1.5 MG/DL (1.8-2.4); POTASSIUM SERUM 3.2 MMOL/L (3.5-5.1); SODIUM LEVEL 136 MMOL/L (136-145)
[2025-09-07] MEDS: MAG SULF 1GM/100ML (MAG RUN) 1 GM in IV 1 EA IV SCH (13:58)
[2025-09-07] MEDS: MAGNESIUM OXIDE 400 MG TAB PO SCH (20:48)
[2025-09-07] MEDS: FERROUS SULFATE 325 MG TAB PO SCH (20:49)
[2025-09-08] VITALS (11 sets, daily range): BP systolic 121–151; BP diastolic 56–68; TEMP 96.9–99.2; O2SAT 83–97
[2025-09-08 06:41] LABS: PLATELET COUNT, AUTOMATED 241 10^3/uL (150-450)
[2025-09-08 07:14] LABS: ALT/SGPT 22 U/L (7.0-40); AST/SGOT 31 U/L (<34); CALCIUM LEVEL 8.4 MG/DL (8.3-10.6); CARBON DIOXIDE LEVEL 33 MMOL/L (20-31); CHLORIDE LEVEL 101 MMOL/L (98-107); CREATININE FOR GFR 0.49 MG/DL (0.55-1.30); GLOMERULAR FILTRATION RATE > 90.0 (>39); MAGNESIUM LEVEL 2.0 MG/DL (1.8-2.4); POTASSIUM SERUM 3.5 MMOL/L (3.5-5.1); SODIUM LEVEL 141 MMOL/L (136-145)
[2025-09-08] MEDS: METOPROLOL TART 25 MG TABLET PO SCH (21:35)
[2025-09-09] VITALS (7 sets, daily range): BP systolic 112–148; BP diastolic 58–74; TEMP 98–99.2; O2SAT 87–95
[2025-09-09] MEDS ORDERED: SENN8.6T28 PO (08:43)
[2025-09-09] MEDS ORDERED: METO1TAB87 PO (08:43)
[2025-09-09] MEDS ORDERED: MAGN400T33 PO (08:43)
[2025-09-09] MEDS ORDERED: METO10TA2 PO (08:43)
[2025-09-09] MEDS ORDERED: ASPI81TAEC PO (08:43)
[2025-09-09] MEDS ORDERED: ONDA-282 PO (08:43)
[2025-09-09] MEDS ORDERED: FERR1TAB8 PO (08:43)
[2025-09-09] MEDS ORDERED: ATOR1TAB21 PO (08:43)
[2025-09-09] MEDS ORDERED: COLA100C5 PO (08:43)
[2025-09-09 09:30] LABS: PLATELET COUNT, AUTOMATED 271 10^3/uL (150-450)
[2025-09-09 10:03] LABS: ALT/SGPT 27 U/L (7.0-40); AST/SGOT 34 U/L (<34); CALCIUM LEVEL 8.6 MG/DL (8.3-10.6); CARBON DIOXIDE LEVEL 32 MMOL/L (20-31); CHLORIDE LEVEL 100 MMOL/L (98-107); CREATININE FOR GFR 0.42 MG/DL (0.55-1.30); GLOMERULAR FILTRATION RATE > 90.0 (>39); MAGNESIUM LEVEL 1.7 MG/DL (1.8-2.4); POTASSIUM SERUM 3.5 MMOL/L (3.5-5.1); SODIUM LEVEL 139 MMOL/L (136-145)
[2025-09-10 15:57] LABS: SOLUBLE TRANSFERRIN RECEPTOR 0.85 mg/L (0.76-1.76)
== END 2025-09-09 14:31 | disposition home health service (06) | DRG 356 ==
LOC: M ED 11:33 → M ED INP 15:59 → INTOOBSV 15:59 → M MSPAV 17:13 → OBSVTOIN 08-31 16:28
PROVIDERS: ADMIT Family Medicine; ATTEND Internal Medicine
PROC: 0DP6XUZ Removal of Feeding Device from Stomach, External Approach (ICD-10-PCS; 2025-08-30)
PROC: 0DH63UZ Insertion of Feeding Device into Stomach, Percutaneous Approach (ICD-10-PCS; 2025-08-30)
PROC: 04713DZ Dilation of Celiac Artery with Intraluminal Device, Percutaneous Approach (ICD-10-PCS; principal; 2025-09-03 14:00)
DX: K55.1 Chronic vascular disorders of intestine (principal); E43 Unspecified severe protein-calorie malnutrition; Z68.1 Body mass index [BMI] 19.9 or less, adult; K31.84 Gastroparesis; R62.7 Adult failure to thrive; I34.1 Nonrheumatic mitral (valve) prolapse; I77.9 Disorder of arteries and arterioles, unspecified; I25.10 Atherosclerotic heart disease of native coronary artery without angina pectoris; I25.2 Old myocardial infarction; M54.9 Dorsalgia, unspecified; R10.9 Unspecified abdominal pain; R11.2 Nausea with vomiting, unspecified; J45.909 Unspecified asthma, uncomplicated; J44.9 Chronic obstructive pulmonary disease, unspecified; D50.9 Iron deficiency anemia, unspecified; Z93.1 Gastrostomy status; R50.9 Fever, unspecified; K59.00 Constipation, unspecified; E87.6 Hypokalemia; E83.42 Hypomagnesemia